=== PATIENT | male | born 1990 | race Caucasian/White ===

== ENCOUNTER 2018-12-17 14:02 | Emergency (ER) | payer OTHER ==
[~2018-12-17] VITALS: Ht 170.2 cm; Wt 132.0 kg
[2018-12-17] MEDS ORDERED: SODIUM CHLORIDE 0.9% 1,000 ML IV ONE (14:14)
--- NOTE | 2018-12-17 14:17 | NUR ---
AMBULATORY TO ED RM 4 BED FROM [facility]; GAIT SLOW & STEADY. PT ADMITS TO DECREASED WATER INTAKE TODAY, TO BEING OUTSIDE IN THE SUN, FOOD INTAKE YESTERDAY, COFFEE THIS AM. FIELD VSS, FBS 116, 18G RAC, 600ML NS INFUSED UPON ARRIVAL.
--- NOTE | 2018-12-17 14:24 | NUR ---
LABS DRAWN, EKG BS.
--- NOTE | 2018-12-17 14:27 | NUR ---
TO RADIOLOGY PER MARIANNA
[2018-12-17] MEDS ORDERED: SODIUM CHLORIDE FLUSH 10ML SYR IVF ONE (14:30)
[2018-12-17] MEDS ORDERED: SODIUM CHLORIDE 0.9% 1,000ML IVBOLUS ONE ×2 (14:30→16:00)
[2018-12-17 14:31] LABS: BASOPHILS # (AUTO) 0.03 x10^3/uL (0-0.1); BASOPHILS % (AUTO) 0 % (0-1); EOSINOPHILS # (AUTO) 0.17 x10^3/uL (0-0.4); EOSINOPHILS % (AUTO) 2 % (1-7); LYMPHOCYTES # (AUTO) 1.22 x10^3/uL (1-3.4); LYMPHOCYTES % (AUTO) 13 % (22-44); MD NO; MEAN CORPUSCULAR HEMOGLOBIN 32.9 pg (27.5-34.5); MEAN CORPUSCULAR HGB CONC 33.3 g/dL (33.2-36.2); MEAN CORPUSCULAR VOLUME 98.8 fL (81-97); MEAN PLATELET VOLUME 7.7 fL (7.4-10.4); MONOCYTES # (AUTO) 0.27 x10^3/uL (0.2-0.8); MONOCYTES % (AUTO) 3 % (2-9); NEUTROPHILS # (AUTO) 7.77 x10^3/uL (1.8-6.8); NEUTROPHILS % (AUTO) 82 % (42-75); PLATELET COUNT 261 x10^3/uL (130-400); RED BLOOD COUNT 3.93 x10^6/uL (4.38-5.82); RED CELL DISTRIBUTION WIDTH 13.5 % (9.4-14.8)
[2018-12-17 14:43] LABS: ALANINE AMINOTRANSFERASE 20 U/L (12-78); ALBUMIN 3.7 g/dL (3.4-5.0); ANION GAP 7 mmol/L (5-15); CALCIUM 8.6 mg/dL (8.5-10.1); CHLORIDE 112 mmol/L (98-107)
[2018-12-17 14:48] LABS: ALKALINE PHOSPHATASE 48 U/L (45-117); BILIRUBIN,TOTAL 0.5 mg/dL (0.2-1.0); TOTAL PROTEIN 6.7 g/dL (6.4-8.2); TROPONIN I < 0.015 ng/mL (0.000-0.045)
[2018-12-17] MEDS ORDERED: PLEASE ENTER HEIGHT AND WEIGHT MC SCH (15:00)
--- NOTE | 2018-12-17 15:21 | NUR ---
PT RESTING QUIETLY ON GURNEY, WATCHING TV, SIDE RAIL UP X2, CALL LIGHT W/IN REACH. MONITORING CONTINUES: SR AT MID-60'S
--- NOTE | 2018-12-17 16:10 | NUR ---
1ST LITER NS INFUSED. 2ND LITER HUNG, TO INFUSE AT 250ML/HR. IV SITE PATENT. PT DOZING ON BED, RESP EVEN & UNLABORED, SKIN WNL. MONITORING CONTINUES: NS
--- NOTE | 2018-12-17 16:53 | NUR ---
VO FROM DR SANCHEZ: RUN CURRENT NS BAG W-O AND ORDER FOOD TRAY.
--- NOTE | 2018-12-17 16:55 | NUR ---
NS RATE INCREASED TO W-O. CRANBERRY JUICE GIVEN TO PT PER HIS REQUEST.
--- NOTE | 2018-12-17 17:22 | NUR ---
DINNER TRAY DELIVERED FROM DIETARY. "HOT" ENTREE IS VERY COLD. CALLED DIETARY FOR A DINNER TRAY OF THE APPROPRIATE TEMPERATURE.
--- NOTE | 2018-12-17 17:45 | NUR ---
PT REPORT TO BOONE ELLIS RN.
--- NOTE | 2018-12-17 17:45 | NUR ---
BREAK RN: PT SITTING UP ON GURNEY, ASKING FOR ADDITIONAL JUICE. SR PER MONITOR. AUTO BP AND PULSE OX IN PLACE. IV INFUSING ORDERED. CONT TO MONITOR.
--- NOTE | 2018-12-17 17:58 | NUR ---
PT PROVIDED WITH MEAL TRAY.
--- NOTE | 2018-12-17 18:19 | NUR ---
DISCUSSED PT BP WITH DR SANCHEZ. 3RD LITER NS STARTED. INFUSING WITHOUT REDNESS/SWELLING.
--- NOTE | 2018-12-17 18:22 | NUR ---
REPORT TO THELMA BLOOM
--- NOTE | 2018-12-17 18:33 | NUR ---
3RD LITER NS INFUSING W-O; SITE PATENT. PT RESTING IN RT LATERAL POSITION. MONITORING CONTINUES: NSR AT LOW-MID 80'S.
--- NOTE | 2018-12-17 19:02 | NUR ---
3RD LITER NS INFUSED; LINE DC'D. PT AMBULATORY TO & FROM BR W/OUT INCIDENT; GAIT QUICK & STEADY. Addendum: 12/17/18 at 1903 by ROBIN PT DENIED LIGHTHEADEDNESS/DIZZINESS W/ STANDING.
--- NOTE | 2018-12-17 19:07 | NUR ---
DR SANCHEZ UPDATED ON PT STATUS
[2018-12-17 19:38] VITALS: BP 106/55
== END 2018-12-17 19:41 | disposition home or self-care (01) ==
LOC: ED 16:33
DX: R42 Dizziness and giddiness (principal); R07.89 Other chest pain; E86.0 Dehydration; F17.200 Nicotine dependence, unspecified, uncomplicated
CPT/HCPCS: 36415; 71046; 80053; 83880; 84484; 85025; 93005; 96360; 96361; 99284; J7030

== ENCOUNTER 2019-01-22 18:06 | Emergency (ER) | payer MEDICAID, OTHER ==
[~2019-01-22] VITALS: Ht 170.2 cm; Wt 61.0 kg
[2019-01-22 20:14] VITALS: BP 94/49
== END 2019-01-22 20:17 | disposition home or self-care (01) ==
LOC: ED 19:55
DX: F10.129 Alcohol abuse with intoxication, unspecified (principal); F15.129 Other stimulant abuse with intoxication, unspecified; F17.200 Nicotine dependence, unspecified, uncomplicated; Z72.9 Problem related to lifestyle, unspecified; Z75.9 Unspecified problem related to medical facilities and other health care; Z63.8 Other specified problems related to primary support group; Y90.9 Presence of alcohol in blood, level not specified
CPT/HCPCS: 36415; 80053; 80307; 85025; 99283